=== PATIENT | male | born 1995 | race Caucasian/White ===

== ENCOUNTER 2017-08-09 10:58 | Emergency (ER) | payer OTHER ==
[2017-08-09 11:23] VITALS: BP 125/75; PULSE 67; TEMP 98; BMI 28.5
[2017-08-09] MEDS ORDERED: TETRACAINE 0.5% OPHTH SOLN 2 ML BOTTLE ONE (11:26)
[2017-08-09] MEDS ORDERED: TETRACAINE 0.5% HCL 0.6ML DROPPER.BOTTLE OU ONE (11:27)
--- NOTE | 2017-08-09 12:01 | PDOC ---
History of Present Illness - General Chief Complaint: Eye Problem Stated Complaint: UNABLE TO SEE, EYE PAIN Time Seen by Provider: 08/09/17 11:17 - History of Present Illness Initial Comments: 22-year-old male with a past medical history significant for asthma presents for evaluation of loss of vision in bilateral eye pain right greater than left since last night. He denies any precipitating traumatic event and this has not happened to him in the past. 08/09/17 11:56 Past History - Past Medical History Allergies/Adverse Reactions: Allergies Allergy/AdvReac Type Severity Reaction Status Date / Time No Known Allergies Allergy Verified 08/09/17 11:09 Home Medications: Ambulatory Orders Albuterol Sulfate Inhaler - [Ventolin HFA Inhaler -] 1 - 2 inh PO QID #1 inhaler 02/23/15 Ibuprofen [Motrin -] 800 mg PO TID #30 tablet 05/18/15 Cyclopentolate 1% Eye Drops [Cyclogyl 1% Eye Drops -] 1 drop OU QID #1 dropsbtl 08/09/17 Tobramycin 0.3% Ophth Soln [Tobrex Ophthalmic Solution -] 1 drop OU QID #1 bottle 08/09/17 COPD: No - Immunization History Td Vaccination: Yes Immunization Up to Date: Yes - Suicide/Smoking/Psychosocial Hx Smoking Status: No Smoking History: Never smoked Years of Tobacco Use: 0 Have you smoked in the past 12 months: Yes Number of Cigarettes Smoked Daily: 4 Cigars Per Day: 0 Information on smoking cessation initiated: No Hx Alcohol Use: No Drug/Substance Use Hx: Yes Substance Use Type: Marijuana Review of Systems - Review of Systems Comments:: GENERAL/CONSTITUTIONAL: No fever or chills. No weakness. No weight change. HEAD, EYES, EARS, NOSE AND THROAT: + change in vision. No ear pain or discharge. No sore throat. CARDIOVASCULAR: No chest pain or shortness of breath. RESPIRATORY: No cough, wheezing, or hemoptysis. GASTROINTESTINAL: No nausea, vomiting, diarrhea or constipation. No rectal bleeding. GENITOURINARY: No dysuria, frequency, or change in urination. MUSCULOSKELETAL: No joint or muscle swelling or pain. No neck or back pain. SKIN AND BREASTS: No rash or easy bruising. NEUROLOGIC: No headache, vertigo, loss of consciousness, or loss of sensation. PSYCHIATRIC: No depression or anxiety. ENDOCRINE: No increased thirst. No abnormal weight change. HEMATOLOGIC/LYMPHATIC: No anemia, easy bleeding, or history of blood clots. ALLERGIC/IMMUNOLOGIC: No hives or skin allergy. No latex allergy. 08/09/17 11:57 *Physical Exam - Vital Signs Last Vital Signs Temp Pulse Resp BP Pulse Ox 98 F 67 18 125/75 99 08/09/17 11:07 08/09/17 11:07 08/09/17 11:07 08/09/17 11:07 08/09/17 11:07 - Physical Exam Comments: Bilateral conjunctiva are injected external ocular muscles are intact pupils are equal and reactive to light. There is no drainage there is bilateral eyeball tenderness. Right eye vision is 25/20 Left eye vision is 20/20 There is photophobia. Forcing staining was done and there is a pierced. Corneal abrasion bilaterally. This may also be a dendritic lesion. There is consensual pain in the right eye when light is shined in the left eye. 08/09/17 11:57 ED Treatment Course - Medications Given in the ED: ED Medications Discontinued Medications Generic Name Dose Route Start Last Admin Trade Name Freq PRN Reason Stop Dose Admin Tetracaine HCl 1 drop 08/09/17 11:27 08/09/17 11:35 Tetravisc 0.5% Eye Drops - OU 08/09/17 11:28 1 drop ONCE ONE Administration Medical Decision Making - Medical Decision Making I've discussed this case with , he has recommended Cyclogyl as well as tobramycin eyedrops. He will see the patient in follow-up in his office in the next 1-2 days. 08/09/17 11:59 *DC/Admit/Observation/Transfer Diagnosis at time of Disposition: Iritis - Discharge Dispostion Disposition: HOME Condition at time of disposition: Improved Decision to Admit order: No - Prescriptions Prescriptions: Cyclopentolate 1% Eye Drops [Cyclogyl 1% Eye Drops -] 1 drop OU QID #1 dropsbtl Tobramycin 0.3% Ophth Soln [Tobrex Ophthalmic Solution -] 1 drop OU QID #1 bottle - Referrals Referrals: Jakob Cedeno MD [Primary Care Provider] - Kuldeep Gunderson MD [Staff Physician] - - Patient Instructions Additional Instructions: Please use the antibiotic drops every 2 hours while awake today and 4 times daily starting tomorrow. I've also prescribed Cyclogyl which is in eyedrop which will dilate your eye. You may not drive while on this medication. That will be one drop 4 times daily starting today. Follow-up with in his office this week. Return to the emergency room if your symptoms worsen prior to follow-up. - Post Discharge Activity
== END 2017-08-09 12:11 | disposition home or self-care (01) ==
LOC: JERFT 10:58 → JER 10:58 → JERFT 12:11
PROC: 4A07X0Z Measurement of Visual Acuity, External Approach (ICD-10-PCS; principal; 2017-08-09)
DX: H20.9 Unspecified iridocyclitis (principal)
CPT/HCPCS: 99173; 99281-25

== ENCOUNTER 2018-06-06 11:47 | Emergency (ER) | payer SELFPAY ==
[2018-06-06] MEDS ORDERED: ALBUTEROL SO4 2.5/IPRATROPIUM 0.5 INH SOL 3 ML VIAL.NEB. NEB ONE ×5 (11:56→14:09)
[2018-06-06 12:00] VITALS: BMI 30.3
--- NOTE | 2018-06-06 12:45 | PDOC ---
Attending Attestation - HPI HPI: 06/06/18 14:13 The patient is a 23 year old male, with no significant PMH , who presents to the emergency department today complaining of wheezing that began yesterday. The patient states he endorsed associated symptoms of throat congestion, sneezing, wheezing sensation, warmth and substernal chest pain.The patient denies shortness of breath, headache and dizziness. Denies chills, nausea, vomit, diarrhea and constipation.Denies any recent travel or history of asthma. Allergies: pollen, dust Past surgical history: None reported Social history: Smokes but denies alcohol or tobacco use. PCP: None reported Documentation prepared by Maxwell Mitchell, acting as medical imaging technologist for Becky Muse MD. - Physicial Exam PE: 06/06/18 14:14 GENERAL: The patient is in no acute distress. HEAD: Normal with no signs of trauma. EYES: PERRLA, EOMI, sclera anicteric, conjunctiva clear. ENT: Ears normal, nares patent, oropharynx clear without exudates. Moist mucous membranes. NECK: Normal range of motion, supple without lymphadenopathy, JVD, or masses. LUNGS: + faint expiratory and inspiratory wheezing HEART:Regular rate and rhythm, normal S1 and S2 without murmur, rub or gallop. ABDOMEN: Soft, nontender, normoactive bowel sounds. No guarding, no rebound. No masses palpable. NEUROLOGICAL: Cranial nerves II through XII grossly intact. Normal speech. No focal neurological deficits. SKIN: Warm, Dry, normal turgor, no rashes or lesions noted. Documentation prepared by Maxwell Mitchell, acting as medical imaging technologist for Becky Muse MD. <Maxwell Mitchell - Last Filed: 06/06/18 14:18> - Resident Resident Name: Nancy Tuttle - ED Attending Attestation I have performed the following: I have examined & evaluated the patient, The case was reviewed & discussed with the resident, I agree w/resident's findings & plan, Exceptions are as noted - Medical Decision Making 06/06/18 13:55 23 yo M presenting to the ER with a complaint of upper respiratory symptoms, difficulty breathing, and wheezing No h/o asthma No fevers or chills Pt does use tobacco DD: bronchitis, URI, Allergic reaction 06/06/18 14:04 Will do: CXR Levi Mendieta Will re assess CXR - nml Albuterol has improved wheezing Pt continues to have weezing Will give another albuterol Pt asked to return to the ER via EMS for ANY worsening of his breathing despite treatment Clinical impression: Bronchitis, initial presentation Reactive airway disease, initial presentation 06/08/18 10:43 <Becky Muse - Last Filed: 06/08/18 10:43>
[2018-06-06] MEDS ORDERED: DEXAMETHASONE 4 MG TABLET (FP) PO ONE (12:46)
[2018-06-06] MEDS ORDERED: DEXAMETHASONE SOD PHOSPHATE 10 MG/1 ML VIAL ONE (12:53)
--- NOTE | 2018-06-06 14:17 | PDOC ---
History of Present Illness - General Chief Complaint: Respiratory Stated Complaint: SOB Time Seen by Provider: 06/06/18 12:26 History Source: Patient Exam Limitations: No Limitations - History of Present Illness Initial Comments: 06/06/18 18:47 Pt is a 23yo M with no significant PMH presenting to ED with complaints of wheezing, congestion and chest congestion. Pt states that yesterday is when he started feeling his symptoms and he was sneezing a lot. He is not sneezing as much anymore but has occasional dry cough. He endorses a congestion/wheezing sensation in the middle of his chest, wheezing and congestion. Denies SOB, sore throat, fevers, chills, chest pain, pain with inspiration, n/v/d, abdominal pain , headache, neck stiffness. No history of asthma, says he does have allergies to pollen/dust. Denies smoking marijuana yesterday PMD: none PMH: none PSH: none Meds: none Allergies: nkda Social: denies smoking. THC use Past History - Past Medical History Allergies/Adverse Reactions: Allergies Allergy/AdvReac Type Severity Reaction Status Date / Time dog dander Allergy Verified 06/06/18 11:59 dust Allergy Uncoded 06/06/18 11:58 Home Medications: Ambulatory Orders Albuterol 0.083% Nebulizer Mirtha [Ventolin 0.083% Nebulizer Soln -] 1 neb NEB Q6H #30 vial 06/06/18 Albuterol Sulfate Inhaler - [Ventolin HFA Inhaler -] 1 - 2 inh PO QID PRN #1 inhaler 06/06/18 Azithromycin [Zithromax 250mg Tablets -] 250 mg PO UTDICT #6 tab 06/06/18 Inhaler, Assist Devices [Space Chamber Plus] 1 each MC ASDIR PRN #1 spacer 06/06 Methylprednisolone [Medrol Dose Mulugeta] 4 mg PO ASDIR #21 tablet 06/06/18 Nebulizer and Compressor [Comp-Air Nebulizer System] 1 each MC ASDIR PRN #1 each 06/06/18 COPD: No - Immunization History Td Vaccination: Yes Immunization Up to Date: Yes - Suicide/Smoking/Psychosocial Hx Smoking Status: No Smoking History: Current every day smoker Years of Tobacco Use: 0 Have you smoked in the past 12 months: No Number of Cigarettes Smoked Daily: 4 If you are a former smoker, when did you quit?: 1YR Cigars Per Day: 0 Information on smoking cessation initiated: No Hx Alcohol Use: No Drug/Substance Use Hx: No Substance Use Type: None Review of Systems - Review of Systems Constitutional: No: Chills, Fever, Weakness HEENTM: Yes: Nose Congestion. No: Ear Pain, Throat Pain, Throat Swelling Respiratory: Yes: See HPI, Cough. No: Shortness of Breath, Productive cough Cardiac (ROS): Yes: See HPI. No: Chest Pain, Lightheadedness, Palpitations ABD/GI: No: Symptoms Reported : No: Symptoms Reported Musculoskeletal: No: Back Pain, Joint Pain, Neck Pain Integumentary: No: Symptoms Reported Neurological: No: Headache, Numbness, Tingling *Physical Exam - Vital Signs Last Vital Signs Temp Pulse Resp BP Pulse Ox 98.6 F 94 H 20 132/72 100 06/06/18 11:59 06/06/18 11:59 06/06/18 11:59 06/06/18 11:59 06/06/18 11:59 - Physical Exam General Appearance: Yes: Nourished, Appropriately Dressed. No: Apparent Distress HEENT: positive: EOMI, ANDRES, Normal ENT Inspection Neck: positive: Trachea midline, Supple. negative: Lymphadenopathy (R), Lymphadenopathy (L) Respiratory/Chest: positive: Wheezing. negative: Chest Tender, Decreased Breath Sounds, Crackles, Rales, Rhonchi Cardiovascular: positive: Regular Rhythm, Regular Rate, S1, S2. negative: Edema , JVD, Murmur Vascular Pulses: Carotid (R): 2+, Carotid (L): 2+, Dorsalis-Pedis (R): 2+, Doralis-Pedis (L): 2+ ED Treatment Course - RADIOLOGY Radiology Studies Ordered: Category Date Time Status CHEST PA & LAT [RAD] Stat Radiology 06/06/18 12:44 Completed - Medications Given in the ED: ED Medications Discontinued Medications Generic Name Dose Route Start Last Admin Trade Name Freq PRN Reason Stop Dose Admin Albuterol/Ipratropium 2 amp 06/06/18 12:01 06/06/18 12:01 Duoneb - NEB 06/06/18 12:02 2 amp NOW ONE Administration Albuterol/Ipratropium 1 amp 06/06/18 13:57 06/06/18 14:12 Duoneb - NEB 06/06/18 13:58 1 amp ONCE ONE Administration Dexamethasone 10 mg 06/06/18 12:46 06/06/18 13:16 Decadron - PO 06/06/18 12:47 10 mg NOW ONE Administration Medical Decision Making - Medical Decision Making 06/06/18 19:28 Pt is a 23yo M with no significant PMH presenting to ED with complaints of wheezing, congestion and chest congestion. Pt states that yesterday is when he started feeling his symptoms and he was sneezing a lot. He is not sneezing as much anymore but has occasional dry cough. He endorses a congestion/wheezing sensation in the middle of his chest, wheezing and congestion. Denies SOB, sore throat, fevers, chills, chest pain, pain with inspiration, n/v/d, abdominal pain , headache, neck stiffness. No history of asthma, says he does have allergies to pollen/dust. Denies smoking marijuana yesterday Vitals: wnl PE: diffuse wheezing. nasal congestion Most likely bronchitis. PERC negative given duoneb by RME. -cxr, duoneb, decadron CXR: hilar fullness pt feeling better. denies sob. will give rx for nebulizer, inhalaer, zpack and medrol dosepack. giving pmd f/u. return precautions. will dc home *DC/Admit/Observation/Transfer Diagnosis at time of Disposition: Bronchitis, Reactive airway disease that is not asthma - Discharge Dispostion Disposition: HOME Condition at time of disposition: Improved - Prescriptions Prescriptions: Albuterol 0.083% Nebulizer Mirtha [Ventolin 0.083% Nebulizer Soln -] 1 neb NEB Q6H #30 vial Albuterol Sulfate Inhaler - [Ventolin HFA Inhaler -] 1 - 2 inh PO QID PRN #1 inhaler PRN Reason: Wheezing Azithromycin [Zithromax 250mg Tablets -] 250 mg PO UTDICT #6 tab Inhaler, Assist Devices [Space Chamber Plus] 1 each MC ASDIR PRN #1 spacer PRN Reason: Wheezing Methylprednisolone [Medrol Dose Mulugeta] 4 mg PO ASDIR #21 tablet Nebulizer and Compressor [Comp-Air Nebulizer System] 1 each MC ASDIR PRN #1 each PRN Reason: Shortness Of Breath - Referrals - Patient Instructions Printed Discharge Instructions: DI for Acute Bronchitis Additional Instructions: You were seen in the emergency room today for wheezing and congestion. You may have bronchitis. The Xray was normal. A prescription for an antibiotic and steroid pack was sent to your pharmacy. Please take as directed. A prescription for a nebulizer was also sent. I recommend that you start seeing a primary care doctor: [place] [id number] [facility] [address] [place] [address] T: [phone] Come back to the emergency room if you have difficulty breathing, you pass out, you have pains in the chest or if any new concerning symptom develops. Thank you - Post Discharge Activity Forms/Work/School Notes: Back to Work
[2018-06-06 15:40] VITALS: BP 143/72; PULSE 88; TEMP 98.5
== END 2018-06-06 15:48 | disposition home or self-care (01) ==
LOC: JER 11:47
PROC: 3E0F7GC Introduction of Other Therapeutic Substance into Respiratory Tract, Via Natural or Artificial Opening (ICD-10-PCS; principal; 2018-06-06)
PROC: 3E0F7GC Introduction of Other Therapeutic Substance into Respiratory Tract, Via Natural or Artificial Opening (ICD-10-PCS; 2018-06-06)
DX: J40 Bronchitis, not specified as acute or chronic (principal); R09.89 Other specified symptoms and signs involving the circulatory and respiratory systems
CPT/HCPCS: 71046-TC-FY; 99281-25

== ENCOUNTER 2018-12-12 05:42 | Emergency (ER) | payer SELFPAY ==
--- NOTE | 2018-12-12 05:48 | PDOC ---
History of Present Illness - General Stated Complaint: VOMITING Time Seen by Provider: 12/12/18 05:48 Past History - Past Medical History Allergies/Adverse Reactions: Allergies Allergy/AdvReac Type Severity Reaction Status Date / Time dog dander Allergy Verified 06/06/18 11:59 dust Allergy Uncoded 06/06/18 11:58 Home Medications: Ambulatory Orders NK [No Known Home Medication] 12/12/18 COPD: No - Immunization History Td Vaccination: Yes Immunization Up to Date: Yes - Psycho Social/Smoking Cessation Hx Smoking Status: No Smoking History: Current every day smoker Years of Tobacco Use: 0 Have you smoked in the past 12 months: No Number of Cigarettes Smoked Daily: 4 If you are a former smoker, when did you quit?: 1YR Cigars Per Day: 0 Hx Alcohol Use: No Drug/Substance Use Hx: No Substance Use Type: None ED Treatment Course - LABORATORY CBC & Chemistry Diagram: 12/12/18 06:00 12/12/18 06:00 Medical Decision Making - Medical Decision Making HPI: 23yo M with PMH of knee surgery presenting with vomiting and abdominal pain. Patient states he has had intermittent abdominal pain since the summer. Has never been evaluated by a physician for this. Unable to state if certain foods incite his pain, however, can tolerate salad and fish without feeling pain. His pain is currently rated 10/10 and described as "ripping." Reports NBNB vomiting episode around 4:40pm today. He states: "I feel like there is something wrong with me." Patient is also concerned by the nature of the vomiting, that it was very forceful such that he felt short of breath. Last bowel movement was a normal formed brown stool without blood yesterday. Never seen a GI doctor. Never had a colonoscopy or endoscopy. Quit smoking two weeks ago, has not drank alcohol for three months, occasional marijuana smoker. No fevers, chills, or chest pain. PCP: Dr. Cedeno ROS: Constitutional: no fever, no chills HEENT: no throat pain, +congestion Cardiovascular: no chest pain, no palpitations Respiratory: no cough, no shortness of breath Gastrointestinal: +abdominal pain, +vomiting Genitourinary: no dysuria, no hematuria Musculoskeletal: no myalgia, no arthralgia Skin: no rash, no itching Neurologic: +headache, no weakness PE: General: Awake, alert, and fully oriented, in no acute distress Head: No signs of trauma Eyes: EOMI, sclera anicteric ENT: Moist mucus membranes Neck: Normal ROM, supple Lungs: Lungs clear, Normal breath sounds Cardio: Regular rhythm, S1 and S2 present Abdomen: Tender to palpation in RLQ and LLQ. Soft, nondistended. No guarding, no rebound, no masses. No CVA tenderness. : normal anatomy, no testicular pain upon palpation, no rashes or lesions Extremities: Normal range of motion, Distal pulses present SKIN: Warm, Dry, normal turgor Neurologic: Cranial nerves II through XII grossly intact. Normal speech ED Course/MDM: DDX including but not limited to pancreatitis, cholecystitis, appendicitis, cannabis hyperemesis, gastritis, gastroenteritis, nephrolithiasis, [facility] Labs Pepcid Zofran Fluids Ofirmev 12/12/18 05:48 Patient signed out to Dr. Britton and day team 12/12/18 06:58 Discharge - Discharge Information Problems reviewed: Yes Clinical Impression/Diagnosis: Abdominal pain with vomiting Condition: Improved Disposition: HOME - Follow up/Referral - Patient Discharge Instructions Patient Printed Discharge Instructions: DI for Vomiting -- Adult Additional Instructions: You came into the emergency department for abdominal pain and vomiting. Labs did not indicate acute pathology. We gave you medicine and fluids which helped you feel better. Your cat scan and ultrasound did not show any bad infections. BRAT diet - do this for 24 hours. - Bananas - Rice - Applesauce - [place] Make sure you drink plenty of water to keep well hydrated. You can take [id number] tylenol or motrin as needed for pain. Follow the instructions on the medication bottle. Follow-up with a primary care provider within 72 hours to discuss this ED visit and to further evaluate your symptoms. Your workup is not complete until you do so. Call and make an appointment. Immediate medical attention is required if you have: worsening pain, high fevers , persistent nausea/vomiting, inability to consume liquids, or any new or concerning symptoms. If you think you are having an emergency, call for emergency medical services or present to the emergency department right away. Print Language: CYMRO - Post Discharge Activity
[2018-12-12 06:05] VITALS: BP 137/79; PULSE 93; TEMP 98.1; BMI 66.9
[2018-12-12] MEDS ORDERED: ACETAMINOPHEN 1000 MG/100 ML VIAL (NON FORMULARY) IVPB ONE (06:11)
[2018-12-12] MEDS ORDERED: ONDANSETRON 4 MG/2 ML VIAL IVPUSH ONE (06:11)
[2018-12-12] MEDS ORDERED: SODIUM CHLORIDE 1,000 ML IV STA (06:11)
[2018-12-12] MEDS ORDERED: FAMOTIDINE 20 MG/50 ML IVPB 20 MG/50 ML MG IVPB ONE ×2 (06:11→06:17)
[2018-12-12] MEDS ORDERED: ACETAMINOPHEN INJECTION 100 ML IVPB ONE (06:16)
[2018-12-12] MEDS ORDERED: ONDANSETRON 4 MG/2 ML VIAL ONE (06:18)
--- NOTE | 2018-12-12 06:27 | PDOC ---
Attending Attestation - Resident Resident Name: Alice Mckinnon - ED Attending Attestation I have performed the following: I have examined & evaluated the patient, The case was reviewed & discussed with the resident, I agree w/resident's findings & plan - HPI HPI: 12/12/18 06:35 Pt comes with complaint of nausea and vomiting. People in the neighborhood here are experiencing stomach viruses. 12/12/18 06:50 Pt states that he works at [employer] he ate nothing but rice yesterday. Vomited 3x; no diarrhea. No fever; no cough; no dysuria. - Physicial Exam PE: 12/12/18 06:35 Agree with resident exam 12/12/18 06:51 Normal exam; afebrile; slight coarse breath sounds on the left side. Pt states that he felt he was wheezing, but I do not appreciate wheeze. - Medical Decision Making 12/12/18 06:35 Pt will have labs checked and he will be hydrated with IVF. He will be signed out to the day team.
[2018-12-12 07:00] LABS: ALBUMIN 4.4 g/dl (3.4-5.0); BILIRUBIN,TOTAL 1.5 mg/dL (0.2-1); BLOOD UREA NITROGEN 15.2 mg/dL (7-18); CALCIUM 9.1 mg/dL (8.5-10.1); CREATININE 1.2 mg/dL (0.55-1.3); POTASSIUM 4.2 mmol/L (3.5-5.1); TOT PROT 7.9 g/dl (6.4-8.2)
[2018-12-12 07:07] LABS: EPI CELLS 0.5 /HPF (0-5/HPF); HYALINE CASTS 1 /lpf (0-8); URINE APPEARANCE CLEAR; URINE BACTERIA 0 /hpf (NEGATIVE); URINE BILIRUBIN NEGATIVE (NEGATIVE); URINE COLOR YELLOW; URINE GLUCOSE (UA) NEGATIVE (NEGATIVE); URINE KETONE NEGATIVE (NEGATIVE); URINE LEUK ESTERASE NEGATIVE (NEGATIVE); URINE NITRITE NEGATIVE (NEGATIVE); URINE PROTEIN TRACE (NEGATIVE); URINE RBC 0 /hpf (0-4); URINE UROBILINOGEN 0.2 mg/dL (0.2-1.0); URINE WBC 1 /hpf (0-5)
[2018-12-12] MEDS ORDERED: MAG HYDROX/AL HYDROX/SIMETH -MYLANTA- ORAL SUSPENSION PO ONE (07:26)
--- NOTE | 2018-12-12 07:30 | PDOC ---
*Physical Exam - Vital Signs Last Vital Signs Temp Pulse Resp BP Pulse Ox 98.1 F 93 H 20 137/79 96 12/12/18 05:54 12/12/18 05:54 12/12/18 05:54 12/12/18 05:54 12/12/18 05:54 - Physical Exam General Appearance: Yes: Nourished, Appropriately Dressed. No: Apparent Distress HEENT: positive: Normal ENT Inspection, Normal Voice Neck: positive: Supple Respiratory/Chest: positive: Lungs Clear, Normal Breath Sounds. negative: Respiratory Distress Cardiovascular: positive: Regular Rhythm, Regular Rate, S1, S2 Vascular Pulses: Dorsalis-Pedis (R): 2+, Doralis-Pedis (L): 2+ Gastrointestinal/Abdominal: positive: Normal Bowel Sounds, Tender (per-umbilical ), Soft. negative: Guarding, Rebound Male Genitalia: positive: normal genitalia. negative: discharge, testicular tenderness, epididymus tender Rectal Exam: positive: deferred Lymphatic: negative: Adenopathy Musculoskeletal: positive: Normal Inspection. negative: CVA Tenderness Extremity: positive: Normal Capillary Refill, Normal Inspection, Normal Range of Motion Integumentary: positive: Normal Color, Dry, Warm Neurologic: positive: Fully Oriented, Alert, Normal Mood/Affect, Normal Response , Motor Strength 5/5 ED Treatment Course - LABORATORY CBC & Chemistry Diagram: 12/12/18 06:00 12/12/18 06:00 - ADDITIONAL ORDERS Additional order review: Laboratory Results 12/12/18 12/12/18 12/12/18 06:00 06:00 06:00 Sodium 143 Potassium 4.2 Chloride 103 Carbon Dioxide 30 Anion Gap 9 BUN 15.2 Creatinine 1.2 Est GFR (CKD-EPI)AfAm 98.89 Est GFR (CKD-EPI)NonAf 85.32 Random Glucose 140 H Calcium 9.1 Total Bilirubin 1.5 H AST 29 ALT 65 H Alkaline Phosphatase 77 Total Protein 7.9 Albumin 4.4 Lipase 72 L Urine Color Yellow Urine Appearance Clear Urine pH 5.0 Ur Specific Gabbs 1.015 Urine Protein Trace Urine Glucose (UA) Negative Urine Ketones Negative Urine Blood Trace Urine Nitrite Negative Urine Bilirubin Negative Urine Urobilinogen 0.2 Ur Leukocyte Esterase Negative Urine WBC (Auto) 1 Urine RBC (Auto) 0 Urine Casts (Auto) 1 U Epithel Cells (Auto) 0.5 Urine Bacteria (Auto) 0 - RADIOLOGY Radiology Studies Ordered: Category Date Time Status ABDOMEN US -LIMITED [US] Stat Ultrasound 12/12/18 07:27 Ordered Radiograph Interpretation: RUQ us: Right upper quadrant, periumbilical pain Right upper abdomen ultrasound. The liver appears to be slightly echogenic measuring 16.4 cm in sagittal length. Gallbladder is adequately distended without intraluminal stones or thickening of its wall. No intra or extrahepatic bile duct dilatation is seen. The right kidney measures 12.3 cm sagittal length and appears unremarkable. Nonvisualization of the pancreas likely due to overlying bowel gas. Visualized portion of the proximal abdominal aorta and inferior vena cava appear unremarkable. Normal flow in the main portal vein. Additional images of the periumbilical area appear unremarkable. IMPRESSION: Nonvisualization of the pancreas likely due to overlying bowel gas. The liver appears to be slightly echogenic. Please correlate with liver enzymes to rule out fatty infiltration versus hepatocellular disease. No gallstones are identified. Evaluation of the periumbilical area appears unremarkable. Correlate clinically for further evaluation. CTAP: Rule out appendicitis CT scan of the abdomen and pelvis following oral and intravenous contrast. Coronal and sagittal reformatted images were obtained 95 cc of Omnipaque 350 was intravenously injected Comparison: Prior upper abdomen ultrasound done earlier on the same date. No prior CT abdomen is available for comparison. In the included lower lung, there are minimal atelectatic changes in the left lower lobe. No pneumothorax or pleural effusion identified. The heart is within normal limits in size.. The liver appears to be borderline in size measuring 17.7 cm in craniocaudal length with mild decreased attenuation. Please correlate with liver enzymes rule out fatty infiltration. The stomach is moderately distended without gross wall thickening The pancreas is enlarged and AP dimension measuring 15.7 cm. In craniocaudal dimensions within normal limits in size measuring 10.7 cm. Evaluation of the pancreas, gallbladder, both adrenal glands and both kidneys appear unremarkable. Fluid-filled slightly dilated small bowel loops are present in the mid and lower abdomen including the terminal ileum with mild hyperemia of its wall and without wall thickening. Findings are suggestive of ileus. Rule out enteritis. The appendix appears unremarkable. The cecum fat is clear. No secondary signs of acute appendicitis are identified. Normal stool burden in the colon without wall thickening partially distended urinary bladder without wall thickening. Normal size prostate gland. Perirectal and pericecal fat are clear. No free air or free fluid in the abdomen pelvis. A few shotty mesenteric lymph nodes are present. Normal size and enhancement of the abdominal aorta down through its bifurcation. Visualized osseous structures appear intact Impression: Normal- appearing appendix without evidence of acute appendicitis. Fluid-filled slightly dilated mid and distal small bowel loops with hyperemia of its wall and without gross wall thickening. Findings are suggestive of ileus. Rule out enteritis. Questionable mild fatty infiltration of the liver. Please correlate with liver enzymes. There is also suggestion of splenomegaly measuring 15.7 cm in AP dimension. Correlate clinically. - Medications Given in the ED: ED Medications Discontinued Medications Generic Name Dose Route Start Last Admin Trade Name Freq PRN Reason Stop Dose Admin Acetaminophen 1,000 mg 12/12/18 06:11 12/12/18 06:31 Ofirmev Injection - IVPB 12/12/18 06:12 1,000 mg ONCE ONE Administration Famotidine/Sodium Chloride 20 mg in 50 mls @ 100 mls/hr 12/12/18 06:11 06:32 Pepcid 20 Mg Premixed Ivpb - IVPB 12/12/18 06:40 100 mls/hr ONCE ONE Administration Sodium Chloride 1,000 mls @ 1,000 mls/hr 12/12/18 06:11 12/12/18 06:31 Normal Saline - IV 12/12/18 07:10 1,000 mls/hr ASDIR STA Administration Ondansetron HCl 4 mg 12/12/18 06:11 12/12/18 06:32 Zofran Injection IVPUSH 12/12/18 06:12 4 mg ONCE ONE Administration Medical Decision Making - Medical Decision Making Received patient as sign out from night team pending labs, re-assessment and final ED disposition. Tu is a 23yo M with PMH of knee surgery who presents with vomiting and abdominal pain. Labs: - Leukocytosis w/ left shift - Elevated Total Bilirubin and ALT Re-assessment: Patient is still experiencing abdominal pain despite receiving tylenol, IVNS and zofran - Will give maalox and obtain a RUQ US then re-assess again. RUQ US: Unremarkable - Patient still has abdominal pain and a positive Rovsig - Will obtain CTAP to r/o appendicitis - Morphine for pain control CTAP: Ileus vs enteritis Disposition: Home with PCP fu Discharge - Discharge Information Problems reviewed: Yes Clinical Impression/Diagnosis: Abdominal pain with vomiting Condition: Improved Disposition: HOME - Admission No - Follow up/Referral - Patient Discharge Instructions Patient Printed Discharge Instructions: DI for Vomiting -- Adult Additional Instructions: You came into the emergency department for abdominal pain and vomiting. Labs did not indicate acute pathology. We gave you medicine and fluids which helped you feel better. Your cat scan and ultrasound did not show any bad infections. BRAT diet - do this for 24 hours. - Bananas - Rice - Applesauce - [place] Make sure you drink plenty of water to keep well hydrated. You can take [id number] tylenol or motrin as needed for pain. Follow the instructions on the medication bottle. Follow-up with a primary care provider within 72 hours to discuss this ED visit and to further evaluate your symptoms. Your workup is not complete until you do so. Call and make an appointment. Immediate medical attention is required if you have: worsening pain, high fevers , persistent nausea/vomiting, inability to consume liquids, or any new or concerning symptoms. If you think you are having an emergency, call for emergency medical services or present to the emergency department right away. Print Language: SURINAMESE - Post Discharge Activity
[2018-12-12] MEDS ORDERED: MAG HYDROX/AL HYDROX/SIMETH 30 ML UNIT-DOSE CUP ONE (07:39)
[2018-12-12 07:45] LABS: BASO % 0.3 % (0-2.0); EOS % 1.5 % (0-4.5); HEMATOCRIT 48.2 % (35.4-49); HEMOGLOBIN 16.7 GM/dL (11.7-16.9); LYMPH % 9.2 % (8-40); MCH 31.6 pg (25.7-33.7); MCHC 34.7 g/dl (32.0-35.9); MEAN PLT VOLUME 8.3 fl (7.5-11.1); PLATELET COUNT 275 K/MM3 (134-434); WHITE BLOOD COUNT 11.1 K/mm3 (4.0-10.0)
[2018-12-12] MEDS ORDERED: morphine CARPU-JECT 4 MG/1 ML DISP.SYRIN IVPUSH ONE (09:33)
[2018-12-12] MEDS ORDERED: morphine SULFATE 4 MG/ML VIAL ONE (09:49)
[2018-12-12] MEDS ORDERED: SODIUM CHLORIDE 0.9% 500 ML INFUS.BAG IV ONE (11:13)
[2018-12-12] MEDS ORDERED: IBUPROFEN 600 MG TABLET (FP) PO ONE ×2 (12:41→13:15)
== END 2018-12-12 13:35 | disposition home or self-care (01) ==
LOC: JER 05:42
PROC: 3E033GC Introduction of Other Therapeutic Substance into Peripheral Vein, Percutaneous Approach (ICD-10-PCS; principal; 2018-12-12)
PROC: 3E033NZ Introduction of Analgesics, Hypnotics, Sedatives into Peripheral Vein, Percutaneous Approach (ICD-10-PCS; 2018-12-12)
PROC: 3E033GC Introduction of Other Therapeutic Substance into Peripheral Vein, Percutaneous Approach (ICD-10-PCS; 2018-12-12)
DX: R10.9 Unspecified abdominal pain (principal); R11.10 Vomiting, unspecified; Z91.048 Other nonmedicinal substance allergy status
CPT/HCPCS: 36415; 71046-TC-FY; 74177-TC; 76705-TC; 80053; 81003; 83690; 85025; 87086; 99283-25; J0131; J7030

== ENCOUNTER 2019-01-26 17:23 | Emergency (ER) | payer SELFPAY ==
[2019-01-26 17:28] VITALS: BMI 30.5
--- NOTE | 2019-01-26 17:31 | PDOC ---
Rapid Medical Evaluation Chief Complaint: Chest Pain Time Seen by Provider: 01/26/19 17:29 Medical Evaluation: Allergies Allergy/AdvReac Type Severity Reaction Status Date / Time dog dander Allergy Verified 01/26/19 17:28 dust Allergy Uncoded 01/26/19 17:28 Vital Signs Temp Pulse Resp BP Pulse Ox 98 F 144 H 18 0/0 L 98 01/26/19 17:24 01/26/19 17:24 01/26/19 17:24 01/26/19 17:24 01/26/19 17:24 01/26/19 17:30 I have performed a brief in-person evaluation of this patient. The patient presents with a chief complaint of: chest pain Pertinent physical exam findings:stable and in NAD, non-focal I have ordered the following: ekg The patient will proceed to the ED for further evaluation.
[2019-01-26] MEDS ORDERED: LORazepam 2 MG/ML SDV VIAL ONE ×2 (17:37→17:49)
[2019-01-26] MEDS ORDERED: ASPIRIN 81 MG CHEWABLE TABLETS PO ONE (17:42)
--- NOTE | 2019-01-26 17:52 | PDOC ---
Documentation entered by Cammie Seals SCRIBE, acting as scribe for Angi Sanchez MD. Angi Sanchez MD: This documentation has been prepared by the Arnel irizarry Sammi, SCRIBE, under my direction and personally reviewed by me in its entirety. I confirm that the documentation accurately reflects all work, treatment, procedures, and medical decision making performed by me. Attending Attestation - Resident Resident Name: Phil Raines - ED Attending Attestation I have performed the following: I have examined & evaluated the patient, The case was reviewed & discussed with the resident, I agree w/resident's findings & plan, Exceptions are as noted - HPI HPI: 01/26/19 17:50 23-year-old male presents with a heart rate in the 160s after smoking cannabis 1 hour ago. Past medical history asthma he is complaining of palpitations - Physicial Exam PE: 01/26/19 17:51 23-year-old male seated on a gurney anxious and complaining of palpitations Head normocephalic atraumatic Neck supple Lungs clear to auscultation CVS tachycardia Abdomen soft Skin warm and dry Neuro alert, conversant moving all extremities Psych anxious - Medical Decision Making 01/26/19 17:52 Patient given Ativan for his anxiety Repeat EKG, ACS work-up, drug tox 01/26/19 22:36 Troponin was negative Repeat EKG was normal sinus rhythm 01/26/19 22:37 Heart rate and discharge to 75 Patient did not have any chest pain or shortness of breath IMP Drug ingestion and consequent tachycardia Patient discharged home and given referral for PCP and cards
--- NOTE | 2019-01-26 18:11 | PDOC ---
History of Present Illness - General Chief Complaint: Chest Pain Stated Complaint: ELIZABETH PAIN Time Seen by Provider: 01/26/19 17:29 History Source: Patient Exam Limitations: No Limitations - History of Present Illness Initial Comments: 01/28/19 06:08 HPI: 23M otherwise healthy presenting to ED with palpitations and chest pressure after smoking marijuana 1 hour ago. Pt adamantly denies other drug use including cocaine, crack, meth. Denies shortness of breath. Denies AVH. Denies PMH Denies Meds Endorses smoking tobacco and marijuana regularly Past History - Past Medical History Allergies/Adverse Reactions: Allergies Allergy/AdvReac Type Severity Reaction Status Date / Time dog dander Allergy Verified 01/26/19 17:28 dust Allergy Uncoded 01/26/19 17:28 Home Medications: Ambulatory Orders NK [No Known Home Medication] 12/12/18 COPD: No - Immunization History Td Vaccination: Yes Immunization Up to Date: Yes - Psycho Social/Smoking Cessation Hx Smoking Status: No Smoking History: Current every day smoker Years of Tobacco Use: 0 Have you smoked in the past 12 months: No Number of Cigarettes Smoked Daily: 5 If you are a former smoker, when did you quit?: 1YR Cigars Per Day: 0 Information on smoking cessation initiated: No Hx Alcohol Use: No Drug/Substance Use Hx: No Substance Use Type: None Review of Systems - Review of Systems Able to Perform ROS?: Yes Comments:: 01/28/19 06:08 ROS: CONSTITUTIONAL: Denies F / C HEENT: Denies changes in vision / hearing RESP: Denies SOB CARD: Endorses chest pressure and palpitations. GI: Denies N / V / D, abdominal pain NEURO: Denies numbness, tingling, weakness PSYCH: Denies AVH Is the patient limited Greek proficient: No *Physical Exam - Vital Signs Last Vital Signs Temp Pulse Resp BP Pulse Ox 98 F 144 H 18 0/0 L 98 01/26/19 17:24 01/26/19 17:24 01/26/19 17:24 01/26/19 17:24 01/26/19 17:24 - Physical Exam Comments: 01/28/19 06:08 PE: GEN: Well developed, extremely anxious, smells of marijuana. AAOx3 HEENT: NC/AT, EOMI, PERRLA, pupils not dilated nor pinpoint. No facial asymmetry. Moist mucous membranes. Normal voice. Supple neck w/ FROM. CV: Tachycardic, S1/S2, regular rhythm. No m/r/g LUNG: CTAB, no wheezes, crackles, rales, rhonchi. GI: soft, ndnt, +BS, no guarding, no rebound. No masses. EXTREMITIES: No obvious deformities of all extremities. SKIN: warm, dry, normal turgor PSYCH: extremely anxious NEURO: Moving all extremities well. ED Treatment Course - LABORATORY CBC & Chemistry Diagram: 01/26/19 17:50 01/26/19 17:50 Medical Decision Making - Medical Decision Making 01/26/19 18:02 MDM: 23M with anxiety, palpitations, and chest pressure an hour after smoking marijuana. HR 160-170s likely accidental co-inhalation of sympathomimetic. r/o ACS, AoD. - cbc, cmp, cardiac - drug screen - cxr - ekg - cardiac monitoring - ativan pt less anxious s/p ativan; HR decreasing now 130-140s 01/26/19 18:19 pt feeling better, HR in 120-130s 01/26/19 19:35 labs reviewed - reassuring 01/26/19 20:10 VS repeated, HR 106 No acute path on CXR per report; agree on review Pt feeling better 01/26/19 20:11 01/26/19 20:28 K noticed to be slightly decreased 3.2 20mEq KDUR 01/26/19 21:12 Pt feeling normal again reassured patient Urine sent; f/u 01/26/19 22:16 UA + marijuana, otherwise neg. rpt EKG NSR, TWI in III, HR 75, NC 208, QRS 94 QTc 399 DC home w/ PCP and cardiology f/u; strict return precautions Discharge - Discharge Information Problems reviewed: Yes Clinical Impression/Diagnosis: Palpitations Condition: Stable Disposition: HOME - Admission No - Follow up/Referral Referrals: [facility] [place] [Provider Group] Scot Lux MD [Staff Physician] - - Patient Discharge Instructions Patient Printed Discharge Instructions: DI for Palpitations Additional Instructions: You were treated in the Emergency Department Your symptoms were likely due to contamination of what you smoked. We recommend refraining from further smoking and marijuana use. Follow up with your primary care doctor in the next 1-3 days regarding this visit to the Emergency Department. We are referring you to [facility] where you can receive primary care if you are interested. A number is provided for you to call and schedule an appointment. We are referring you to a [employer]. Follow up with them in the next 3-5 days. The number is provided and you may call to schedule an appointment. IMMEDIATELY RETURN TO THE NEAREST EMERGENCY DEPARTMENT IF YOU EXPERIENCE ANY OF THE FOLLOWING: - WORSENING SYMPTOMS - CHEST PAIN - SHORTNESS OF BREATH - LOSS OF CONSCIOUSNESS, SEIZURES - ANYTHING THAT CONCERNS YOU - Post Discharge Activity
[2019-01-26 18:17] LABS: BASO % 0.6 % (0-2.0); EOS % 1.3 % (0-4.5); HEMATOCRIT 48.8 % (35.4-49); HEMOGLOBIN 16.4 GM/dL (11.7-16.9); LYMPH % 37.9 % (8-40); MCH 30.5 pg (25.7-33.7); MCHC 33.6 g/dl (32.0-35.9); MEAN CELL VOLUME 90.7 fl (80-96); MEAN PLT VOLUME 8.1 fl (7.5-11.1); MONO % 8.2 % (3.8-10.2); PLATELET COUNT 396 K/MM3 (134-434); RBC 5.37 M/mm3 (4.00-5.60); RDW 13.4 % (11.9-15.9); WHITE BLOOD COUNT 12.4 K/mm3 (4.0-10.0)
[2019-01-26] MEDS ORDERED: ASPIRIN 81 MG CHEWABLE TABLETS ONE (18:28)
[2019-01-26 18:29] LABS: ALBUMIN 4.3 g/dl (3.4-5.0); BILIRUBIN,TOTAL 1.1 mg/dL (0.2-1); BLOOD UREA NITROGEN 9.6 mg/dL (7-18); CALCIUM 9.7 mg/dL (8.5-10.1); CREATININE 1.3 mg/dL (0.55-1.3); POTASSIUM 3.2 mmol/L (3.5-5.1); TOT PROT 7.9 g/dl (6.4-8.2)
[2019-01-26 18:41] LABS: INR 1.05 (0.83-1.09); PROTHROMBIN TIME (PATIENT) 12.4 SEC (9.7-13.0)
[2019-01-26 18:44] LABS: ACTIVATED PTT 29.1 SECONDS (25.2-36.5)
[2019-01-26 20:09] VITALS: BP 119/58; TEMP 98.2
[2019-01-26] MEDS ORDERED: POTASSIUM CHLORIDE TABS 20 MEQ TABLET.ER (FP) PO ONE ×2 (20:27→20:49)
[2019-01-26 20:34] VITALS: PULSE 99
[2019-01-26 21:56] LABS: COCAINE, UR NEGATIVE ng/ml (CUTOFF=300); METHADONE, UR NEGATIVE ng/ml (CUTOFF=300); OPIATES, URI NEGATIVE ng/ml (CUTOFF=300); PHENCYCLIDINE,URINE NEGATIVE ng/ml (CUTOFF=25); URINE AMPHETAMINES NEGATIVE ng/ml (CUTOFF=500); URINE BARBITURATES NEGATIVE ng/ml (CUTOFF=200); URINE BENZODIAZEPINES NEGATIVE ng/ml (CUTOFF=200)
--- NOTE | 2019-01-27 10:33 | EKG ---
Test Reason : Blood Pressure : / mmHG Vent. Rate : 147 BPM Atrial Rate : 147 BPM P-R Int : 174 ms QRS Dur : 084 ms QT Int : 232 ms P-R-T Axes : 066 067 257 degrees QTc Int : 363 ms POOR DATA QUALITY, INTERPRETATION MAY BE ADVERSELY AFFECTED SINUS TACHYCARDIA BIATRIAL ENLARGEMENT ABNORMAL ECG WHEN COMPARED WITH ECG OF 26-JAN-2019 17:29, NO SIGNIFICANT CHANGE WAS FOUND Confirmed by SHRUTHI JACKSON, MARLIN ([id number]) on 01/27/2019 10:33:36 AM Referred By: Confirmed By:MARLIN HAWKINS MD
--- NOTE | 2019-01-27 10:35 | EKG ---
Test Reason : Blood Pressure : / mmHG Vent. Rate : 163 BPM Atrial Rate : 163 BPM P-R Int : 140 ms QRS Dur : 076 ms QT Int : 224 ms P-R-T Axes : 073 076 269 degrees QTc Int : 368 ms POOR DATA QUALITY, INTERPRETATION MAY BE ADVERSELY AFFECTED SINUS TACHYCARDIA ABNORMAL ECG NO PREVIOUS ECGS AVAILABLE Confirmed by SHRUTHI JACKSON, MARLIN ([id number]) on 01/27/2019 10:34:47 AM Referred By: Confirmed By:MARLIN HAWKINS MD
--- NOTE | 2019-01-27 12:46 | EKG ---
Test Reason : Blood Pressure : / mmHG Vent. Rate : 075 BPM Atrial Rate : 075 BPM P-R Int : 208 ms QRS Dur : 094 ms QT Int : 358 ms P-R-T Axes : 027 059 000 degrees QTc Int : 399 ms NORMAL SINUS RHYTHM NONSPECIFIC ST AND T WAVE ABNORMALITY ABNORMAL ECG WHEN COMPARED WITH ECG OF 26-JAN-2019 17:46, VENT. RATE HAS DECREASED BY [address] ELEVATION HAS REPLACED ST DEPRESSION IN LATERAL LEADS T WAVE INVERSION LESS EVIDENT IN INFERIOR LEADS NONSPECIFIC T WAVE ABNORMALITY HAS REPLACED INVERTED T WAVES IN LATERAL LEADS Confirmed by SHRUTHI JACKSON, MARLIN ([id number]) on 01/27/2019 12:46:19 PM Referred By: Confirmed By:MARLIN HAWKINS MD
== END 2019-01-26 22:50 | disposition home or self-care (01) ==
LOC: JER 17:23
PROC: 3E033NZ Introduction of Analgesics, Hypnotics, Sedatives into Peripheral Vein, Percutaneous Approach (ICD-10-PCS; principal; 2019-01-26)
DX: R00.2 Palpitations (principal); E87.6 Hypokalemia; F12.10 Cannabis abuse, uncomplicated; F17.210 Nicotine dependence, cigarettes, uncomplicated; Z91.048 Other nonmedicinal substance allergy status; F41.9 Anxiety disorder, unspecified
CPT/HCPCS: 36415; 71045-TC-FY; 80053; 80307; 82550; 83735; 84484; 85025; 85610; 85730; 93005; 93010; 99285-25

== ENCOUNTER 2019-11-24 18:58 | Emergency (ER) | payer OTHER ==
[2019-11-24 19:10] VITALS: BP 109/59; PULSE 85; TEMP 98.4; BMI 29.7
--- NOTE | 2019-11-24 19:10 | PDOC ---
Rapid Medical Evaluation Chief Complaint: Pain, Acute Time Seen by Provider: 11/24/19 19:08 Medical Evaluation: Allergies Allergy/AdvReac Type Severity Reaction Status Date / Time dog dander Allergy Verified 01/26/19 17:28 dust Allergy Uncoded 01/26/19 17:28 11/24/19 19:09 CC: left knee pain after colliding w/ another played, denies fall or inability to ambulate Exam: mild erythema over ant aspect of left patella, no crepitus, FROM Plan: FT Discharge Disposition - Diagnosis Knee pain - Discharge Dispostion Condition at time of disposition: Stable - Referrals - Patient Instructions - Post Discharge Activity
--- NOTE | 2019-11-24 19:52 | PDOC ---
History of Present Illness - General Chief Complaint: Pain, Acute Stated Complaint: KNEE PAIN Time Seen by Provider: 11/24/19 19:08 - History of Present Illness Initial Comments: 11/24/19 19:50 24-year-old male without comorbidities presents for evaluation of left knee pain after playing basketball. Prior ACL done without any sequelae since surgery a number of years ago. He describes a contact type injury on the medial aspect of his left knee Past History - Medical History Allergies/Adverse Reactions: Allergies Allergy/AdvReac Type Severity Reaction Status Date / Time dog dander Allergy Verified 01/26/19 17:28 dust Allergy Uncoded 01/26/19 17:28 Home Medications: Ambulatory Orders NK [No Known Home Medication] 12/12/18 COPD: No - Immunization History Td Vaccination: Yes Immunization Up to Date: Yes - Psycho-Social/Smoking History Smoking Status: No Smoking History: Former smoker Years of Tobacco Use: 0 Have you smoked in the past 12 months: No Number of Cigarettes Smoked Daily: 5 If you are a former smoker, when did you quit?: 1YR Cigars Per Day: 0 Information on smoking cessation initiated: No - Substance Abuse Hx (Audit-C & DAST Scrn) How often the patient has a drink containing alcohol: Never Score: In Men: 4 or > Positive; In Women: 3 or > Positive: 0 Screen Result (Pos requires Nsg. Audit-10AR): Negative In the last yr the pt used illegal drug/Rx for NonMed reason: No Score: Yes response is considered Positive: 0 Screen Result (Positive result requires Nsg. DAST-10): Negative Review of Systems - Review of Systems Musculoskeletal: Yes: Joint Pain *Physical Exam - Vital Signs Last Vital Signs Temp Pulse Resp BP Pulse Ox 98.4 F 85 18 109/59 L 99 11/24/19 19:07 11/24/19 19:07 11/24/19 19:07 11/24/19 19:07 11/24/19 19:07 - Physical Exam 11/24/19 19:50 Left knee skin color and temperature normal range of motion is full extensor me chanism is intact. Medial joint line tenderness posterior medially no other areas of tenderness no instability or gross sensorimotor deficits normal hip and ankle range of motion thigh and calf soft and nontender negative straight leg raise test neurovascular intact antalgic gait. ED Treatment Course - RADIOLOGY Radiology Studies Ordered: Category Date Time Status KNEE 3 POS-LEFT [RAD] Stat Radiology 11/24/19 19:33 Taken Medical Decision Making - Medical Decision Making 11/24/19 19:50 Interference screws present in the femur and tibia. Possible medial meniscal tear. Weight-bear as tolerated with crutches follow-up with Ortho Tylenol Motrin for pain I have reviewed the pathophysiology with the patient. They are in agreement with the treatment plan all questions were answered to their satisfaction. Understanding for follow-up without fail was also conveyed to the patient. Again they are in agreement. Discharge - Discharge Information Problems reviewed: Yes Clinical Impression/Diagnosis: Knee pain Condition: Stable Disposition: HOME - Admission No - Follow up/Referral Referrals: Emmanuel Martínez DO [Staff Physician] - - Patient Discharge Instructions Additional Instructions: You may weight-bear as tolerated with crutches. Tylenol and Motrin as directed for pain. Return to the emergency room for worsening symptoms. Without fail follow-up with orthopedic surgery in 1 to 2 days for further evaluation and treatment options. - Post Discharge Activity
== END 2019-11-24 22:10 | disposition home or self-care (01) ==
LOC: JER 18:58
DX: M25.562 Pain in left knee (principal)
CPT/HCPCS: 73562-TC-LT-FY; 99284-25

== ENCOUNTER 2019-12-21 17:24 | Emergency (ER) | payer OTHER ==
--- NOTE | 2019-12-21 17:26 | PDOC ---
Rapid Medical Evaluation Time Seen by Provider: 12/21/19 17:24 Medical Evaluation: Allergies Allergy/AdvReac Type Severity Reaction Status Date / Time dog dander Allergy Verified 12/21/19 17:24 dust Allergy Uncoded 12/21/19 17:24 12/21/19 17:25 24 year old male s/p fall with right hand pain PE: obvious deformity to R 4th met with skin tenting Plan XR Pt to percede to ED for further eval
[2019-12-21 17:28] VITALS: BP 154/77; PULSE 79; TEMP 98.8; BMI 29.7
--- OUTSIDE RECORDS SUMMARY | 2019-12-21 17:36 | XMS ---
:1995 Author Organization [facility] Care Team Providers Name Role Phone ED STAFF PHYSICIAN, STAFF Unavailable Unavailable ED STAFF PHYSICIAN Unavailable Unavailable Re-disclosure Warning The records that you are about to access may contain information from federally- assisted alcohol or drug abuse programs. If such information is present, then the following federally mandated warning applies: This information has been disclosed to you from records protected by federal confidentiality rules (42 CFR part 2). The federal rules prohibit you from making any further disclosure of this information unless further disclosure is expressly permitted by the written consent of the person to whom it pertains or as otherwise permitted by 42 CFR part 2. A general authorization for the release of medical or other information is NOT sufficient for this purpose. The Federal rules restrict any use of the information to criminally investigate or prosecute any alcohol or drug abuse patient.The records that you are about to access may contain highly sensitive health information, the redisclosure of which is protected by Article 27-F of the [facility] Public Health law. If you continue you may haveaccess to information: Regarding HIV / AIDS; Provided by facilities licensed or operated by the [facility] Office of Mental Health; or Provided by the [facility] Office for People With Developmental Disabilities. If such information is present, then the following [facility] mandated warning applies: This information has been disclosed to you from confidential records which are protected by state law. State law prohibits you from making any further disclosure of this information without the specific written consent of the person to whom it pertains, or as otherwise permitted by law. Any unauthorized further disclosure in violation of state law may result in a fine or alf sentence or both. A general authorization for the release of medical or other information is NOT sufficient authorization for further disclosure. Encounters Encounter Providers Location Date Indications Data Source(s ) Emergency Attender: ED STAFF H 10/18/2019 [facility] PHYSICIANAttender: 08:15:00 PM EDT [facility]ical [facility] STAFF ED STAFF - 10/18/2019 PHYSICIANAdmitter: 11:30:00 PM EDT ED STAFF PHYSICIAN Patient discharged. Insurance Providers Payer name Policy type Policy ID Covered Covered green party's Policy P pato / Coverage green party ID relationship to [employer] ormation type [place] [id number] [place] [id number] HMO O MVP/HHP O [id number] SELF PAY SP INSURANCE Problems, Conditions, and Diagnoses Code Display Name Description Problem Type Effective Data Sour ce(s) Dates F17.210 Nicotine NICOTINE Diagnosis 10/18/2019 [facility] dependence, DEPENDENCE, 08:15:[address] cigarettes, CIGARETTES, EDT uncomplicated UNCOMPLICATED A64 Unspecified UNSPECIFIED Diagnosis 10/18/2019 [place] [facility] sexually SEXUALLY 08:15:00 [facility] TRANSMITTED EDT disease DISEASE Z11.3 Encounter for ENCNTR SCREEN FOR Diagnosis 10/18/2019 [facility] screening for INFECTIONS W SEXL 08:15:00 PM [facility] ical Center infections with a MODE OF TRANSMISS EDT predominantly sexual mode of transmission Social History Code Duration Value Status Description Data Source(s ) Smoking 10/18/2019 09:39:00 Daily Smoker completed Daily Smoker [facility] EDT Center Smoking 10/18/2019 08:45:00 Daily Smoker completed Daily Smoker [facility] EDT Center Vital Signs ID Date Data Source UNK Name Value Range Interpretation Code Description Data Source(s) Body weight 95.562298 kg 95.480615 kg [facility] Measured [facility] Body temperature 36.713303 36.012520 [facility] Respiratory rate 18 /min 18 /min [facility] Oxygen saturation 98 % 98 % [facility] osephs in Arterial blood Medical Center by Pulse oximetry Heart rate 72 /min 72 /min [facility] Body height 185.903552 185.359013 cm [facility] cm Medical Center Diastolic blood 72 mm[Hg] 72 mm[Hg] [facility] pressure Medical Center Systolic blood 117 mm[Hg] 117 mm[Hg] [facility] pressure Medical Center Body mass index 27.7 kg/m2 27.7 kg/m2 [facility] (BMI) [Ratio] [facility]
--- NOTE | 2019-12-21 17:49 | PDOC ---
History of Present Illness - General Chief Complaint: Injury Stated Complaint: R ARM INJURY Time Seen by Provider: 12/21/19 17:24 - History of Present Illness Initial Comments: 12/21/19 17:47 24-year-old male no comorbidities presents for evaluation of right hand pain after falling on an outstretched hand. He did not hit his head. No post injury nausea vomiting or visual changes only right hand pain. He points to the area o f the dorsum of the hand in the area of the fourth metacarpal as the area of his discomfort. Past History - Medical History Allergies/Adverse Reactions: Allergies Allergy/AdvReac Type Severity Reaction Status Date / Time dog dander Allergy Verified 12/21/19 17:24 dust Allergy Uncoded 12/21/19 17:24 Home Medications: Ambulatory Orders NK [No Known Home Medication] 12/12/18 COPD: No - Immunization History Td Vaccination: Yes Immunization Up to Date: Yes - Psycho-Social/Smoking History Smoking Status: No Smoking History: Former smoker Years of Tobacco Use: 0 Have you smoked in the past 12 months: No Number of Cigarettes Smoked Daily: 5 If you are a former smoker, when did you quit?: 2019 Cigars Per Day: 0 Information on smoking cessation initiated: No - Substance Abuse Hx (Audit-C & DAST Scrn) How often the patient has a drink containing alcohol: Never Score: In Men: 4 or > Positive; In Women: 3 or > Positive: 0 Screen Result (Pos requires Nsg. Audit-10AR): Negative In the last yr the pt used illegal drug/Rx for NonMed reason: No Score: Yes response is considered Positive: 0 Screen Result (Positive result requires Nsg. DAST-10): Negative Review of Systems - Review of Systems Musculoskeletal: Yes: See HPI *Physical Exam - Vital Signs Last Vital Signs Temp Pulse Resp BP Pulse Ox 98.8 F 79 18 154/77 100 12/21/19 17:25 12/21/19 17:25 12/21/19 17:25 12/21/19 17:25 12/21/19 17:25 - Physical Exam 12/21/19 17:47 Right hand skin color and temperature normal tenderness at the fourth and fifth metacarpal proximally no gross sensorimotor deficits unable to assess rotational deformity secondary to pain neurovascular intact ED Treatment Course - Medications Given in the ED: ED Medications Discontinued Medications Generic Name Dose Route Start Last Admin Trade Name Andie PRN Reason Stop Dose Admin Oxycodone/Acetaminophen 2 combo 12/21/19 17:34 12/21/19 17:37 Percocet 5/325 - PO 12/21/19 17:35 2 combo ONCE ONE Administration Medical Decision Making - Medical Decision Making 12/21/19 17:47 There is a dorsally angulated fourth metacarpal fracture approximately about Ulnar gutter splint applied patient neurovascular intact post splint application instructed to follow-up with orthopedic hand surgery. He was given a dose of Percocet in the emergency room which will he does not want a prescription for he states he will take Tylenol at home I have reviewed the pathophysiology with the patient. They are in agreement with the treatment plan all questions were answered to their satisfaction. Understanding for follow-up without fail was also conveyed to the patient. Again they are in agreement. 5 degrees at the apex. Discharge - Discharge Information Problems reviewed: Yes Clinical Impression/Diagnosis: Right hand fracture Condition: Stable Disposition: HOME - Admission No - Follow up/Referral Referrals: Edson Jackson MD [Staff Physician] - - Patient Discharge Instructions Additional Instructions: Tylenol as directed for pain. Return to the emergency room for worsening symptoms and without fail follow-up with orthopedic hand surgery in 1 to 2 days for further evaluation and treatment options. Of note you were given a dose of Percocet in the emergency room which contains Tylenol. Do not take Tylenol for pain until another 6 hours. You may take anti-inflammatories however these medications tend to delay bone healing. Please discuss anti-inflammatory pain management if you do not want narcotic pain management with your orthopedic surgeon. Again please follow-up with orthopedic surgery without fail as this fracture may require operative intervention and fixation. - Post Discharge Activity
== END 2019-12-21 17:53 | disposition home or self-care (01) ==
LOC: JERFT 17:24
DX: S62.91XA Unspecified fracture of right hand, initial encounter for closed fracture (principal)
CPT/HCPCS: 73130-TC-RT-FY; 99283-25

== ENCOUNTER 2020-05-01 21:37 | Emergency (ER) | payer OTHER ==
[2020-05-01 22:03] VITALS: BP 120/80; PULSE 79; TEMP 98.2; BMI 27.7
[2020-05-01] MEDS ORDERED: DIPHTH,PERTUSS(ACELL),TET 0.5 ML DISP.SYRIN IM ONE (23:50)
[2020-05-02] MEDS ORDERED: DIPHTH,PERTUSS(ACELL),TET 0.5 ML DISP.SYRIN IM ONE (00:37)
== END 2020-05-01 22:40 | disposition home or self-care (01) ==
LOC: JER 21:37
PROC: 3E0234Z Introduction of Serum, Toxoid and Vaccine into Muscle, Percutaneous Approach (ICD-10-PCS; principal; 2020-05-01)
DX: S61.011A Laceration without foreign body of right thumb without damage to nail, initial encounter (principal)
CPT/HCPCS: 90471; 99284-25

== ENCOUNTER 2020-07-05 00:22 | Emergency (ER) | payer OTHER ==
[2020-07-05 00:57] VITALS: BP 131/62; PULSE 97; TEMP 98.9; BMI 31.6
[2020-07-05] MEDS ORDERED: ALBUTEROL SO4 0.083% IH SOL 2.5 MG/3 ML VIAL.NEB. NEB ONE ×2 (01:46→02:07)
[2020-07-05] MEDS ORDERED: FLUTICASONE PROP 0.05% 16 GM NASAL SPRAY NS ONE (01:47)
[2020-07-05] MEDS ORDERED: DEXAMETHASONE 4 MG TABLET (FP) PO ONE (01:50)
[2020-07-05] MEDS ORDERED: DEXAMETHASONE 4 MG TABLET (FP) ONE (02:07)
== END 2020-07-05 03:09 | disposition home or self-care (01) ==
LOC: JER 00:22
PROC: 3E0F7GC Introduction of Other Therapeutic Substance into Respiratory Tract, Via Natural or Artificial Opening (ICD-10-PCS; principal; 2020-07-05)
DX: R09.81 Nasal congestion (principal); J68.3 Other acute and subacute respiratory conditions due to chemicals, gases, fumes and vapors
CPT/HCPCS: 99284-25

== ENCOUNTER 2020-08-26 01:03 | Emergency (ER) | payer OTHER ==
[2020-08-26] MEDS ORDERED: LIDOCAINE 2.5%/PRILOCAINE 2.5% 30 GRAM TUBE TP ONE (01:15)
[2020-08-26 01:19] VITALS: BP 115/78; PULSE 93; TEMP 98.5; BMI 33.0
[2020-08-26] MEDS ORDERED: CEPHALEXIN MONOHYDRATE 500 MG CAPSULE (UD) PO ONE (03:09)
[2020-08-26] MEDS ORDERED: CEPHALEXIN MONOHYDRATE 500 MG CAPSULE (UD) ONE (03:16)
== END 2020-08-26 03:24 | disposition home or self-care (01) ==
LOC: JER 01:03
PROC: 0HQFXZZ Repair Right Hand Skin, External Approach (ICD-10-PCS; principal; 2020-08-26)
DX: S61.211A Laceration without foreign body of left index finger without damage to nail, initial encounter (principal)
CPT/HCPCS: 99284-25

== ENCOUNTER 2021-05-18 01:07 | Emergency (ER) | payer OTHER ==
[2021-05-18 01:32] VITALS: BP 138/69; PULSE 98; TEMP 97.8; BMI 30.9
== END 2021-05-18 05:14 | disposition home or self-care (01) ==
LOC: JER 01:07
DX: J03.90 Acute tonsillitis, unspecified (principal)
CPT/HCPCS: 87651; 99283-25

== ENCOUNTER 2021-05-28 12:18 | Emergency (ER) | payer OTHER ==
[2021-05-28 12:34] VITALS: PULSE 90; TEMP 98.2; BMI 29.0
[2021-05-28 14:03] VITALS: BP 133/84
[2021-05-28] MEDS ORDERED: DEXAMETHASONE SOD PHOSPHATE 10 MG/1 ML VIAL ONE (14:03)
[2021-05-28] MEDS ORDERED: DEXAMETHASONE SOD PHOSPHATE 10 MG/1 ML VIAL IM ONE (14:09)
== END 2021-05-28 14:14 | disposition home or self-care (01) ==
LOC: JERFT 12:18
PROC: 3E023GC Introduction of Other Therapeutic Substance into Muscle, Percutaneous Approach (ICD-10-PCS; principal; 2021-05-28)
DX: J03.90 Acute tonsillitis, unspecified (principal)
CPT/HCPCS: 36415; 87070; 87077; 87491; 87591; 87651; 99284-25; J1100

== ENCOUNTER 2021-10-18 22:56 | Emergency (ER) | payer OTHER ==
[2021-10-18 23:03] VITALS: BP 131/80; PULSE 80; RESP 19; TEMP 97.9; BMI 30.3
[2021-10-18] MEDS ORDERED: MAG HYDROX/AL HYDROX/SIMETH -MYLANTA- ORAL SUSPENSION PO ONE (23:54)
[2021-10-18] MEDS ORDERED: FAMOTIDINE 20 MG TABLET PO ONE (23:54)
[2021-10-19] MEDS ORDERED: FAMOTIDINE 20 MG TABLET ONE
[2021-10-19] MEDS ORDERED: MAG HYDROX/AL HYDROX/SIMETH 30 ML UNIT-DOSE CUP ONE (00:01)
== END 2021-10-19 01:04 | disposition left against medical advice (07) ==
LOC: JER 22:56
DX: R07.0 Pain in throat (principal); R09.89 Other specified symptoms and signs involving the circulatory and respiratory systems
CPT/HCPCS: 99283-25

== ENCOUNTER 2022-04-09 01:22 | Emergency (ER) | payer OTHER ==
[2022-04-09 01:47] VITALS: BP 146/90; PULSE 81; RESP 18; TEMP 98.4; BMI 21.7
[2022-04-09 03:05] LABS: THROAT:GRP A STREP NOT DETECTED (NOTDETECTED)
[2022-04-09] MEDS ORDERED: DEXAMETHASONE LIQUID 0.5 MG/5 ML PO ONE (05:21)
[2022-04-09] MEDS ORDERED: KETOROLAC TROMETHAMINE 30 MG/1 ML VIAL IM ONE (05:21)
[2022-04-09] MEDS ORDERED: AMOXICILLIN 500 MG CAPSULE (FP) PO ONE (05:24)
[2022-04-09] MEDS ORDERED: DEXAMETHASONE SOD PHOSPHATE 10 MG/1 ML VIAL ONE ×2 (05:43→05:46)
[2022-04-09] MEDS ORDERED: KETOROLAC TROMETHAMINE 30 MG/1 ML VIAL ONE ×2 (05:44→05:46)
[2022-04-09] MEDS ORDERED: AMOXICILLIN 500 MG CAPSULE (FP) ONE (05:45)
[2022-04-09] MEDS ORDERED: AMOXICILLIN 250 MG CAPSULE ONE (05:46)
== END 2022-04-09 05:53 | disposition home or self-care (01) ==
LOC: JER 01:22
PROC: 3E0233Z Introduction of Anti-inflammatory into Muscle, Percutaneous Approach (ICD-10-PCS; principal; 2022-04-09)
DX: J02.9 Acute pharyngitis, unspecified (principal)
CPT/HCPCS: 0241U-QW; 87651; 99284-25

== ENCOUNTER 2022-10-12 00:08 | Emergency (ER) | payer OTHER ==
[2022-10-12 00:14] VITALS: RESP 18; TEMP 98.4; BMI 30.7
[2022-10-12] MEDS ORDERED: IBUPROFEN 100 MG/5 ML UNIT DOSE CUPS PO ONE (00:39)
[2022-10-12] MEDS ORDERED: IBUPROFEN 100 MG/5 ML UNIT DOSE CUPS ONE (00:41)
[2022-10-12 02:20] VITALS: BP 126/72; PULSE 92
== END 2022-10-12 02:20 | disposition home or self-care (01) ==
LOC: JER 00:08
DX: J02.9 Acute pharyngitis, unspecified (principal); R13.10 Dysphagia, unspecified; J35.1 Hypertrophy of tonsils; Z20.822 Contact with and (suspected) exposure to COVID-19
CPT/HCPCS: 0241U-QW; 87651; 99283-25

== ENCOUNTER 2022-10-14 00:59 | Emergency (ER) | payer OTHER ==
[2022-10-14 01:24] VITALS: BP 119/67; PULSE 84; RESP 18; TEMP 99.4; BMI 30.7
[2022-10-14 02:34] LABS: BASO % 0.6 % (0-2.0); EOS % 2.2 % (0-4.5); HEMATOCRIT 40.4 % (35.4-49); HEMOGLOBIN 14.5 GM/dL (11.7-16.9); LYMPH % 20.7 % (8-40); MCH 31.3 pg (25.7-33.7); MCHC 35.9 g/dl (32.0-35.9); MEAN CELL VOLUME 87.3 fl (80-96); MEAN PLT VOLUME 7.5 fl (7.5-11.1); MONO % 13.2 % (3.8-10.2); NEUT % 63.3 % (42.8-82.8); PLATELET COUNT 251 10^3/uL (134-434); RBC 4.63 M/mm3 (4.00-5.60); RDW 13.6 % (11.9-15.9); WHITE BLOOD COUNT 5.9 K/mm3 (4.0-10.0)
[2022-10-14 03:27] LABS: POTASSIUM 4.7 mmol/L (3.5-5.1)
[2022-10-14 03:31] LABS: ALBUMIN 3.9 g/dl (3.4-5.0); BLOOD UREA NITROGEN 19.8 mg/dL (7-18)
[2022-10-14 03:33] LABS: CREATININE 1.1 mg/dL (0.55-1.3)
[2022-10-14 03:34] LABS: BILIRUBIN,TOTAL 1.4 mg/dL (0.2-1); TOT PROT 7.7 g/dl (6.4-8.2)
== END 2022-10-14 04:07 | disposition home or self-care (01) ==
LOC: JER 00:59
DX: B35.3 Tinea pedis (principal); R21 Rash and other nonspecific skin eruption; J02.9 Acute pharyngitis, unspecified
CPT/HCPCS: 36415; 80053; 85025; 86780; 99283-25

== ENCOUNTER 2023-01-26 22:40 | Emergency (ER) | payer OTHER ==
[2023-01-26 22:47] VITALS: BP 136/73; PULSE 64; RESP 18; TEMP 98.3; BMI 31.1
== END 2023-01-27 03:15 | disposition left against medical advice (07) ==
LOC: JERFT 22:40 → JER 22:40
DX: R05.9 Cough, unspecified (principal); R07.9 Chest pain, unspecified; R06.02 Shortness of breath; R49.0 Dysphonia; Z20.822 Contact with and (suspected) exposure to COVID-19
CPT/HCPCS: 0241U-QW; 36415; 71046-TC-FY; 84484; 93005; 93010; 99285-25

== ENCOUNTER 2023-02-05 23:41 | Observation (INO) | payer OTHER ==
[2023-02-06 00:53] LABS: EOS % 0.9 % (0-4.5); HEMATOCRIT 45.8 % (35.4-49); LYMPH % 18.3 % (8-40); MCH 30.3 pg (25.7-33.7); MCHC 34.8 g/dl (32.0-35.9); MEAN CELL VOLUME 87.1 fl (80-96); MEAN PLT VOLUME 7.6 fl (7.5-11.1); MONO % 6.4 % (3.8-10.2); NEUT % 73.4 % (42.8-82.8); PLATELET COUNT 308 10^3/uL (134-434); RBC 5.26 M/mm3 (4.00-5.60); RDW 13.5 % (11.9-15.9); WHITE BLOOD COUNT 10.7 K/mm3 (4.0-10.0)
[2023-02-06 01:01] LABS: INR 1.04 (0.83-1.09); PROTHROMBIN TIME (PATIENT) 12.1 SEC (9.7-13.0)
[2023-02-06 01:04] LABS: ACTIVATED PTT 29.2 SECONDS (25.2-36.5)
[2023-02-06 01:19] LABS: ALBUMIN 4.1 g/dl (3.4-5.0)
[2023-02-06 01:22] LABS: CREATININE 1.3 mg/dL (0.55-1.3)
[2023-02-06] MEDS ORDERED: ASPIRIN 325 MG TABLET PO ONE (02:22)
[2023-02-06] MEDS ORDERED: ASPIRIN 81 MG CHEWABLE TABLETS ONE (02:27)
[2023-02-06] MEDS ORDERED: COLCHICINE 0.6 MG TAB ONE (08:58)
[2023-02-06] MEDS: ENOXAPARIN NA (PORCINE) 40 MG/0.4 ML DISP.SYRIN SQ SCH (09:57)
[2023-02-06] MEDS: COLCHICINE 0.6 MG TAB PO SCH ×2 (09:57→21:13)
[2023-02-06] MEDS: PANTOPRAZOLE 40 MG TABLET PO SCH (09:57)
[2023-02-06] MEDS ORDERED: ASPIRIN 325 MG TABLET PO SCH (10:00)
[2023-02-06] MEDS: INDOMETHACIN 25 MG CAPSULE PO SCH ×2 (13:53→21:12)
[2023-02-06] MEDS ORDERED: BENZOCAINE/MENTH/CETYLPYRD CL 1 EACH LOZENGE MM PRN (14:34)
[2023-02-06 14:47] VITALS: BMI 30.9
[2023-02-06] MEDS ORDERED: BENZONATATE 200 MG CAPSULE PO PRN (22:40)
[2023-02-06] MEDS ORDERED: BENZONATATE 200 MG CAPSULE PO ONE (22:43)
[2023-02-07 05:37] VITALS: TEMP 98.6
[2023-02-07] MEDS: INDOMETHACIN 25 MG CAPSULE PO SCH (05:37)
[2023-02-07 07:40] LABS: BASO % 0.5 % (0-2.0); EOS % 0.7 % (0-4.5); HEMATOCRIT 45.4 % (35.4-49); HEMOGLOBIN 15.6 GM/dL (11.7-16.9); LYMPH % 29.5 % (8-40); MCH 30.3 pg (25.7-33.7); MCHC 34.3 g/dl (32.0-35.9); MEAN CELL VOLUME 88.4 fl (80-96); MONO % 11.9 % (3.8-10.2); NEUT % 57.4 % (42.8-82.8); PLATELET COUNT 267 10^3/uL (134-434); RBC 5.14 M/mm3 (4.00-5.60); RDW 13.2 % (11.9-15.9)
[2023-02-07 08:12] LABS: POTASSIUM 4.2 mmol/L (3.5-5.1)
[2023-02-07 08:14] LABS: CALCIUM 8.7 mg/dL (8.5-10.1)
[2023-02-07 08:15] LABS: ALBUMIN 3.7 g/dl (3.4-5.0); BLOOD UREA NITROGEN 16.9 mg/dL (7-18)
[2023-02-07 08:18] LABS: PHOSPHOROUS 4.3 mg/dL (2.5-4.9)
[2023-02-07 08:20] LABS: BILIRUBIN,TOTAL 2.4 mg/dL (0.2-1); TOT PROT 7.2 g/dl (6.4-8.2)
[2023-02-07 09:31] VITALS: BP 132/82; PULSE 80; RESP 18
[2023-02-07] MEDS: PANTOPRAZOLE 40 MG TABLET PO SCH (09:42)
[2023-02-07] MEDS: ENOXAPARIN NA (PORCINE) 40 MG/0.4 ML DISP.SYRIN SQ SCH (09:42)
[2023-02-07] MEDS: COLCHICINE 0.6 MG TAB PO SCH (09:42)
[2023-02-07 10:25] LABS: PHENCYCLIDINE,URINE NEGATIVE (NEGATIVE)
[2023-02-07 10:26] LABS: COCAINE, UR NEGATIVE (NEGATIVE); METHADONE, UR NEGATIVE (NEGATIVE); OPIATES, URI NEGATIVE (NEGATIVE); URINE AMPHETAMINES NEGATIVE (NEGATIVE); URINE BARBITURATES NEGATIVE (NEGATIVE); URINE BENZODIAZEPINES NEGATIVE (NEGATIVE)
== END 2023-02-07 13:14 | disposition home or self-care (01) ==
LOC: JER 23:41 → JERBED 02-06 02:12 → J4W 02-06 14:00
PROVIDERS: ADMIT Internal Medicine; ATTEND Internal Medicine
DX: I30.9 Acute pericarditis, unspecified (principal); B34.8 Other viral infections of unspecified site; R09.3 Abnormal sputum; R94.31 Abnormal electrocardiogram [ECG] [EKG]; Z88.8 Allergy status to other drugs, medicaments and biological substances; Z91.048 Other nonmedicinal substance allergy status; R05.9 Cough, unspecified
CPT/HCPCS: 0241U-QW; 36415; 71275-TC; 80053; 80307; 83735; 84100; 84484; 85025; 85610; 85730; 93005; 93010; 93306-TC; 99285-25; G0378; Q9967

== ENCOUNTER 2023-04-17 10:44 | Emergency (ER) | payer OTHER ==
[2023-04-17 10:50] VITALS: BP 138/78; PULSE 67; RESP 18; TEMP 98.1; BMI 29.7
== END 2023-04-17 12:30 | disposition home or self-care (01) ==
LOC: JERFT 10:44
DX: S40.011A Contusion of right shoulder, initial encounter (principal); W18.39XA Other fall on same level, initial encounter; Y93.67 Activity, basketball
CPT/HCPCS: 73030-TC-RT-FY; 99283-25

== ENCOUNTER 2023-05-26 01:26 | Emergency (ER) | payer OTHER ==
[2023-05-26 01:35] VITALS: BP 121/66; PULSE 81; RESP 18; TEMP 98.6; BMI 28.3
[2023-05-26] MEDS ORDERED: DIPHTH,PERTUSS(ACELL),TET 0.5 ML DISP.SYRIN IM ONE (02:57)
[2023-05-26] MEDS: DIPHTH,PERTUSS(ACELL),TET 0.5 ML DISP.SYRIN IM ONE (03:00)
== END 2023-05-26 03:01 | disposition home or self-care (01) ==
LOC: JER 01:26
PROC: 0HQEXZZ Repair Left Lower Arm Skin, External Approach (ICD-10-PCS; principal; 2023-05-26)
PROC: 0HQEXZZ Repair Left Lower Arm Skin, External Approach (ICD-10-PCS; 2023-05-26)
DX: S56.522A Laceration of other extensor muscle, fascia and tendon at forearm level, left arm, initial encounter (principal); W25.XXXA Contact with sharp glass, initial encounter
CPT/HCPCS: 12002-25; 90471; 90715; 99283-25

== ENCOUNTER 2023-05-30 22:56 | Emergency (ER) | payer OTHER ==
[2023-05-30 23:04] VITALS: BP 128/76; PULSE 86; RESP 18; TEMP 98.6; BMI 28.3
[2023-05-30] MEDS ORDERED: KETOROLAC TROMETHAMINE 30 MG/1 ML VIAL ONE (23:21)
[2023-05-30] MEDS: KETOROLAC TROMETHAMINE 30 MG/1 ML VIAL IM ONE (23:26)
== END 2023-05-30 23:50 | disposition home or self-care (01) ==
LOC: JER 22:56
PROC: 3E0233Z Introduction of Anti-inflammatory into Muscle, Percutaneous Approach (ICD-10-PCS; principal; 2023-05-30)
DX: G89.18 Other acute postprocedural pain (principal); M79.644 Pain in right finger(s)
CPT/HCPCS: 99284-25